=== PATIENT | female | born 1950 | race Caucasian/White ===

== ENCOUNTER 2021-12-30 13:01 | Outpatient (CLI) | payer MEDICARE, BC ==
[~2021-12-30 13:01] MED LIST: Iopamidol 370 76% 100 ML VIAL ONE
== END 2021-12-30 13:02 | disposition home or self-care (01) ==
LOC: CSHCT 13:01
PROVIDERS: ATTEND Internal Medicine Cardiovascular Disease
DX: Z01.810 Encounter for preprocedural cardiovascular examination (principal); Z01.818 Encounter for other preprocedural examination; I48.0 Paroxysmal atrial fibrillation; E27.8 Other specified disorders of adrenal gland; R59.0 Localized enlarged lymph nodes; Z20.822 Contact with and (suspected) exposure to COVID-19
CPT/HCPCS: 71275; 80053; 85027; 85610; 85730; 86850; 86900; 86901; 87811; 93005; 93010; Q9967